=== PATIENT | male | born 1930 | race African-American/Black ===

== ENCOUNTER → 2016-10-06 | Outpatient (CLI) | payer MEDICARE ==
[~2016-10-06] MED LIST: ALBU2.5V13 NEB; ATOR20TA65 PO; CARV12.545 PO; ISOS1TAB PO; MULT1TAB7 PO; PRED5DRO7 RIGHTEYE
== END | disposition home or self-care (01) ==
LOC: RAD 09:27
PROVIDERS: ATTEND Internal Medicine
DX: J44.9 Chronic obstructive pulmonary disease, unspecified (principal); J90 Pleural effusion, not elsewhere classified; I51.7 Cardiomegaly; Z95.810 Presence of automatic (implantable) cardiac defibrillator
CPT/HCPCS: 71010

== ENCOUNTER → 2016-10-07 | Outpatient (CLI) | payer MEDICARE ==
[2016-10-07 09:39] LABS: BASOPHILS % 0.8 % (0.0-2.0); EOSINOPHILS % 1.8 % (0.0-5.0); HEMATOCRIT. 29.3 % (42.0-52.0); HEMOGLOBIN. 9.4 g/dL (14.0-18.0); LYMPHOCYTES % 11.1 % (20.0-50.0); MEAN CORPUSCULAR HEMOGLOBIN 26.8 pg (28.0-32.0); MEAN CORPUSCULAR HGB CONC 32.1 g/dL (31.0-37.0); MEAN CORPUSCULAR VOLUME 83.5 fL (80.0-94.0); MEAN PLATELET VOLUME 6.4 fl (7.4-10.4); MONOCYTES % 10.3 % (2.0-8.0); PLATELET 84 x1000/uL (130-400); WHITE BLOOD COUNT 3.5 x1000/uL (4.5-11.0)
[2016-10-07 10:00] LABS: ALANINE AMINOTRANSFERASE 24 IU/L (13-61); ALBUMIN 3.2 g/dL (3.4-5.0); ANION GAP 12; CALCIUM 9.2 mg/dL (8.5-10.1); CARBON DIOXIDE 28 mEq/L (21-32); CHLORIDE 113 mEq/L (98-107); INDEX HEMOLYSI 1 (1-3); INDEX ICTERIC 1 (1-4); INDEX LIPEMIC 1 (1-3); UREA NITROGEN BLOOD 37 mg/dL (7-21); eGFR 38 mL/min (>60)
[2016-10-07 10:30] LABS: CLARITY URINE CLEAR (CLEAR); COLOR URINE YELLOW (YELLOW); GLUCOSE URINE NEGATIVE (NEGATIVE); KETONES URINE NEGATIVE (NEGATIVE); LEUKOCYTE ESTERASE URINE NEGATIVE (NEGATIVE); NITRITE URINE NEGATIVE (NEGATIVE); OCCULT BLOOD URINE NEGATIVE (NEGATIVE); PH URINE 7.5 (4.5-8.0); PROTEIN URINE NEGATIVE (NEGATIVE); SPECIFIC GRAVITY URINE 1.011 (1.005-1.030); UROBILINOGEN URINE 0.2 E.U./dL (0.2-1.0)
== END | disposition home or self-care (01) ==
LOC: LAB 09:10
PROVIDERS: ATTEND Internal Medicine
DX: H43.391 Other vitreous opacities, right eye (principal)
CPT/HCPCS: 36415; 80053; 81003; 85025

== ENCOUNTER → 2016-10-09 | Outpatient (CLI) | payer MEDICARE | END | disposition home or self-care (01) | LOC: CARD 11:58 | PROVIDERS: ATTEND Internal Medicine | DX: Z01.818 Encounter for other preprocedural examination (principal); H43.391 Other vitreous opacities, right eye | CPT/HCPCS: 93005 ==

== ENCOUNTER 2018-02-15 18:06 | Inpatient (IN) | payer MEDICARE, OTHER ==
[~2018-02-15] VITALS: Ht 180.3 cm; Wt 58.5 kg
[2018-02-15 19:00] VITALS: BP 121/52
[2018-02-15 20:00] VITALS: BP 120/53
[2018-02-15] MEDS ORDERED: ENOXAPARIN 40MG/0.4ML SYR SUBCUT SCH (20:00)
[2018-02-15] MEDS ORDERED: ONDANSETRON HCL 4MG/2ML INJ IV PRN (20:00)
[2018-02-15] MEDS ORDERED: ACETAMINOPHEN 325MG TABLET PO PRN (20:00)
[2018-02-15] MEDS ORDERED: CLONIDINE 0.1MG TABLET PO PRN (20:00)
[2018-02-15] MEDS ORDERED: MAGNESIUM/ALUMINUM HYDROXIDE/SIMETHICONE 30ML UDC PO PRN (20:00)
[2018-02-15] MEDS ORDERED: DIPHENHYDRAMINE 50MG/ML VIAL IV PRN (20:00)
[2018-02-15] MEDS ORDERED: IPRATROPIUM/ALBUTEROL 0.5-3(2.5)MG/3ML NEB HHN SCH (20:00)
[2018-02-15] MEDS ORDERED: ONDANSETRON 4MG ODT PO PRN (21:15)
[2018-02-15 21:43] LABS: BASOPHILS % 0.7 % (0.0-2.0); EOSINOPHILS % 0.8 % (0.0-5.0); HEMATOCRIT. 25.1 % (42.0-52.0); HEMOGLOBIN. 8.2 g/dL (14.0-18.0); LYMPHOCYTES % 8.7 % (20.0-50.0); MEAN CORPUSCULAR HEMOGLOBIN 26.9 pg (28.0-32.0); MEAN CORPUSCULAR VOLUME 81.8 fL (80.0-94.0); MEAN PLATELET VOLUME 6.2 fl (7.4-10.4); MONOCYTES % 12.7 % (2.0-8.0); NEUTROPHILS % 77.1 % (40.0-76.0); PLATELET 87 x1000/uL (130-400); RED BLOOD CELL COUNT 3.06 mill/uL (4.7-6.1); RED CELL DISTRIBUTION WIDTH 23.6 % (11.6-14.6)
[2018-02-15 21:53] LABS: CHLORIDE 110 mEq/L (98-107)
[2018-02-15] MEDS: FAMOTIDINE 20MG TABLET PO SCH (22:01)
[2018-02-15] MEDS: ATORVASTATIN CALCIUM 20MG TABLET PO SCH (22:01)
[2018-02-15] MEDS: CARVEDILOL 12.5MG TABLET PO SCH (22:02)
[2018-02-15] MEDS: FUROSEMIDE 40MG/4ML VIAL IVP SCH (22:02)
[2018-02-15] MEDS: SODIUM CHLORIDE 0.9% INJ 3ML FLUSH IVF SCH (22:02)
[2018-02-15] MEDS ORDERED: METHYLPREDNISOLONE SOD SUCC 40 MG/ML VIAL IV NR (22:15)
[2018-02-15 22:40] LABS: PLATELET ESTIMATE DECREASED
[2018-02-15] MEDS: ISOSORB DINIT/HYDRALAZINE HCL 20/37.5MG TABLET PO SCH (22:56)
[2018-02-15] MEDS ORDERED: FURO-151 PO (23:39)
[2018-02-15] MEDS: BUDESONIDE 0.5MG/2ML NEB HHN SCH (23:57)
[2018-02-16] VITALS: BP 115/51
[2018-02-16 04:00] VITALS: BP 114/54
[2018-02-16] MEDS: SODIUM CHLORIDE 0.9% INJ 3ML FLUSH IVF SCH ×3 (06:21→21:13)
[2018-02-16 08:00] VITALS: BP 117/56
[2018-02-16] MEDS: BUDESONIDE 0.5MG/2ML NEB HHN SCH ×2 (08:38→21:17)
[2018-02-16] MEDS: IPRATROPIUM/ALBUTEROL 0.5-3(2.5)MG/3ML NEB INH PRN ×2 (08:38→21:17)
[2018-02-16] MEDS: ISOSORB DINIT/HYDRALAZINE HCL 20/37.5MG TABLET PO SCH ×2 (09:20→21:13)
[2018-02-16] MEDS: FUROSEMIDE 40MG/4ML VIAL IVP SCH (09:20)
[2018-02-16] MEDS: COLCHICINE 0.6MG TABLET PO SCH (09:20)
[2018-02-16] MEDS: CARVEDILOL 12.5MG TABLET PO SCH ×2 (09:20→21:13)
[2018-02-16] MEDS: FINASTERIDE 5MG TABLET PO SCH (09:21)
[2018-02-16] MEDS: PREDNISOLONE ACETATE 1% OPHTH DROPS 1ML RIGHTEYE SCH ×2 (09:28→17:32)
[2018-02-16 12:41] VITALS: BP 112/45
[2018-02-16 14:05] LABS: T4 FREE 1.21 ng/dL (0.76-1.46)
[2018-02-16 15:31] LABS: CREATINE KINASE 65 IU/L (39-308)
[2018-02-16 15:32] LABS: CREATINE KINASE MB FRACTION < 1.0 ng/mL (0.5-3.6)
[2018-02-16 16:53] VITALS: BP 113/65
[2018-02-16 20:00] VITALS: BP 103/51
[2018-02-16] MEDS: ATORVASTATIN CALCIUM 20MG TABLET PO SCH (21:12)
[2018-02-16] MEDS: FAMOTIDINE 20MG TABLET PO SCH (21:13)
[2018-02-17] VITALS: BP_SYST 113; BP_SYST 132; BP_DIAS 50; BP_DIAS 53
[2018-02-17 00:49] LABS: CREATINE KINASE 51 IU/L (39-308); CREATINE KINASE MB FRACTION < 1.0 ng/mL (0.5-3.6)
[2018-02-17 04:00] VITALS: BP 121/53
[2018-02-17] MEDS: SODIUM CHLORIDE 0.9% INJ 3ML FLUSH IVF SCH ×3 (05:35→21:14)
[2018-02-17 08:00] VITALS: BP 130/64
[2018-02-17] MEDS: BUDESONIDE 0.5MG/2ML NEB HHN SCH ×2 (08:58→19:39)
[2018-02-17] MEDS: IPRATROPIUM/ALBUTEROL 0.5-3(2.5)MG/3ML NEB INH PRN (08:58)
[2018-02-17 09:24] LABS: CHLORIDE 111 mEq/L (98-107)
[2018-02-17 09:34] LABS: CREATINE KINASE 45 IU/L (39-308)
[2018-02-17 09:37] LABS: CREATINE KINASE MB FRACTION < 1.0 ng/mL (0.5-3.6)
[2018-02-17] MEDS: PREDNISOLONE ACETATE 1% OPHTH DROPS 1ML RIGHTEYE SCH ×2 (10:03→17:48)
[2018-02-17] MEDS: COLCHICINE 0.6MG TABLET PO SCH (10:04)
[2018-02-17] MEDS: ISOSORB DINIT/HYDRALAZINE HCL 20/37.5MG TABLET PO SCH ×2 (10:05→21:13)
[2018-02-17] MEDS: FINASTERIDE 5MG TABLET PO SCH (10:05)
[2018-02-17] MEDS: FUROSEMIDE 40MG/4ML VIAL IVP SCH (10:06)
[2018-02-17] MEDS: CARVEDILOL 12.5MG TABLET PO SCH ×2 (10:08→21:13)
[2018-02-17 12:00] VITALS: BP 117/63
[2018-02-17] MEDS ORDERED: SODIUM BICARBONATE 4% (2.4MEQ) 5ML VIAL IV ONE (13:45)
[2018-02-17] MEDS ORDERED: LIDOCAINE HCL 1% 10 MG/ML 10ML VIAL ONE (13:45)
[2018-02-17 17:24] VITALS: BP 115/53
[2018-02-17 20:00] VITALS: BP 128/58
[2018-02-17] MEDS: ATORVASTATIN CALCIUM 20MG TABLET PO SCH (21:12)
[2018-02-17] MEDS: FAMOTIDINE 20MG TABLET PO SCH (21:13)
[2018-02-18] VITALS: BP 165/60
[2018-02-18 04:00] VITALS: BP 115/50
[2018-02-18] MEDS: SODIUM CHLORIDE 0.9% INJ 3ML FLUSH IVF SCH ×3 (06:17→23:35)
[2018-02-18] MEDS: BUDESONIDE 0.5MG/2ML NEB HHN SCH ×2 (07:57→20:35)
[2018-02-18] MEDS: IPRATROPIUM/ALBUTEROL 0.5-3(2.5)MG/3ML NEB INH PRN (07:57)
[2018-02-18 08:00] VITALS: BP 123/57
[2018-02-18] MEDS: COLCHICINE 0.6MG TABLET PO SCH ×2 (09:11→16:07)
[2018-02-18] MEDS: CARVEDILOL 12.5MG TABLET PO SCH ×2 (09:11→20:10)
[2018-02-18] MEDS: FINASTERIDE 5MG TABLET PO SCH (09:11)
[2018-02-18] MEDS: FUROSEMIDE 40MG/4ML VIAL IVP SCH (09:11)
[2018-02-18] MEDS: ISOSORB DINIT/HYDRALAZINE HCL 20/37.5MG TABLET PO SCH ×2 (09:11→20:11)
[2018-02-18] MEDS: PREDNISOLONE ACETATE 1% OPHTH DROPS 1ML RIGHTEYE SCH ×2 (09:41→16:07)
[2018-02-18 12:00] VITALS: BP 121/56
[2018-02-18] MEDS ORDERED: METHYLPREDNISOLONE SOD SUCC 40 MG/ML VIAL IV NR (14:50)
[2018-02-18 16:00] VITALS: BP 118/69
[2018-02-18 19:49] VITALS: BP 122/57
[2018-02-18] MEDS: LIDOCAINE 5% PATCH TOP SCH (20:10)
[2018-02-18] MEDS: FAMOTIDINE 20MG TABLET PO SCH (20:10)
[2018-02-18] MEDS: ATORVASTATIN CALCIUM 20MG TABLET PO SCH (20:11)
[2018-02-19] VITALS (8 sets, daily range): BP systolic 110–166; BP diastolic 55–69
[2018-02-19] MEDS: SODIUM CHLORIDE 0.9% INJ 3ML FLUSH IVF SCH ×2 (06:14→13:07)
[2018-02-19] MEDS: CARVEDILOL 12.5MG TABLET PO SCH ×2 (08:54→20:17)
[2018-02-19] MEDS: PREDNISOLONE ACETATE 1% OPHTH DROPS 1ML RIGHTEYE SCH ×2 (08:56→16:59)
[2018-02-19] MEDS: OXYCODONE HCL 5MG TABLET PO SCH ×3 (08:56→16:59)
[2018-02-19] MEDS: ISOSORB DINIT/HYDRALAZINE HCL 20/37.5MG TABLET PO SCH ×2 (08:56→20:17)
[2018-02-19] MEDS: COLCHICINE 0.6MG TABLET PO SCH ×2 (08:56→16:59)
[2018-02-19] MEDS: FINASTERIDE 5MG TABLET PO SCH (08:56)
[2018-02-19] MEDS: LIDOCAINE 5% PATCH TOP SCH (08:57)
[2018-02-19] MEDS ORDERED: FUROSEMIDE 40MG TABLET PO SCH (09:00)
[2018-02-19] MEDS: ATORVASTATIN CALCIUM 20MG TABLET PO SCH (20:16)
[2018-02-19] MEDS: FAMOTIDINE 20MG TABLET PO SCH (20:17)
== END 2018-02-19 21:16 | DRG 291 ==
LOC: 8WST 18:06
PROVIDERS: ADMIT Internal Medicine; ATTEND Internal Medicine
PROC: 0S9C3ZZ Drainage of Right Knee Joint, Percutaneous Approach (ICD-10-PCS; principal; 2018-02-17)
DX: I13.0 Hypertensive heart and chronic kidney disease with heart failure and stage 1 through stage 4 chronic kidney disease, or unspecified chronic kidney disease (principal); I50.23 Acute on chronic systolic (congestive) heart failure; E46 Unspecified protein-calorie malnutrition; D61.818 Other pancytopenia; E87.0 Hyperosmolality and hypernatremia; N17.9 Acute kidney failure, unspecified; Z68.1 Body mass index [BMI] 19.9 or less, adult; I42.0 Dilated cardiomyopathy; N18.9 Chronic kidney disease, unspecified; J44.9 Chronic obstructive pulmonary disease, unspecified; K57.90 Diverticulosis of intestine, part unspecified, without perforation or abscess without bleeding; M25.461 Effusion, right knee; M19.90 Unspecified osteoarthritis, unspecified site; E78.00 Pure hypercholesterolemia, unspecified; I27.20 Pulmonary hypertension, unspecified; I07.1 Rheumatic tricuspid insufficiency; M10.9 Gout, unspecified; I25.10 Atherosclerotic heart disease of native coronary artery without angina pectoris; I44.7 Left bundle-branch block, unspecified; Z82.49 Family history of ischemic heart disease and other diseases of the circulatory system; Z95.810 Presence of automatic (implantable) cardiac defibrillator
CPT/HCPCS: 20611; 36415; 71045; 73560; 80048; 80053; 80061; 82550; 82553; 83036; 83880; 84439; 84443; 84484; 84550; 85025; 85379; 89050; 89060; 93005; 93306; 93970; 94640; 97162; 97530; C1893; J1940; J2920; J3490; J7620; J7626

== ENCOUNTER 2018-02-19 21:18 | Inpatient (IN) | payer MEDICARE, OTHER ==
[~2018-02-19] VITALS: Ht 180.3 cm; Wt 58.5 kg
[~2018-02-19 21:18] MED LIST changes: +FURO-151 PO
[2018-02-19 21:30] VITALS: BP 136/58
[2018-02-19 21:40] VITALS: BP 136/58
[2018-02-19] MEDS ORDERED: ACETAMINOPHEN 325MG TABLET PO PRN (22:45)
[2018-02-19] MEDS ORDERED: IPRATROPIUM/ALBUTEROL 0.5-3(2.5)MG/3ML NEB HHN PRN (22:45)
[2018-02-19] MEDS ORDERED: CLONIDINE 0.1MG TABLET PO PRN (22:45)
[2018-02-19] MEDS ORDERED: ONDANSETRON 4MG ODT PO PRN (22:45)
[2018-02-19] MEDS ORDERED: MAGNESIUM HYDROXIDE 400MG/5ML 30ML UDC PO PRN (22:45)
[2018-02-19] MEDS ORDERED: DIPHENHYDRAMINE 25MG CAPSULE PO PRN (22:45)
[2018-02-19] MEDS ORDERED: MAGNESIUM/ALUMINUM HYDROXIDE/SIMETHICONE 30ML UDC PO PRN (22:45)
[2018-02-20 08:00] VITALS: BP 144/66
[2018-02-20 08:11] LABS: BASOPHILS % 0.8 % (0.0-2.0); EOSINOPHILS % 2.3 % (0.0-5.0); HEMATOCRIT. 25.3 % (42.0-52.0); HEMOGLOBIN. 8.7 g/dL (14.0-18.0); LYMPHOCYTES % 13.4 % (20.0-50.0); MEAN CORPUSCULAR VOLUME 81.5 fL (80.0-94.0); MEAN PLATELET VOLUME 6.2 fl (7.4-10.4); MONOCYTES % 11.5 % (2.0-8.0); PLATELET 135 x1000/uL (130-400); RED CELL DISTRIBUTION WIDTH 22.6 % (11.6-14.6)
[2018-02-20 08:49] LABS: CHLORIDE 111 mEq/L (98-107)
[2018-02-20] MEDS: POLYETHYLENE GLYCOL 3350 (17GM) 1 DOSE PACK PO SCH (08:51)
[2018-02-20] MEDS: PREDNISOLONE ACETATE 1% OPHTH DROPS 1ML RIGHTEYE SCH ×2 (08:51→17:09)
[2018-02-20] MEDS: FUROSEMIDE 40MG TABLET PO SCH (08:52)
[2018-02-20] MEDS: COLCHICINE 0.6MG TABLET PO SCH ×2 (08:52→17:09)
[2018-02-20] MEDS: ISOSORB DINIT/HYDRALAZINE HCL 20/37.5MG TABLET PO SCH ×2 (08:53→20:54)
[2018-02-20] MEDS: CARVEDILOL 12.5MG TABLET PO SCH ×2 (08:53→20:54)
[2018-02-20] MEDS: FINASTERIDE 5MG TABLET PO SCH (08:53)
[2018-02-20] MEDS: DOCUSATE SODIUM 100MG CAPSULE PO SCH ×2 (08:54→17:09)
[2018-02-20] MEDS: OXYCODONE HCL 5MG TABLET PO SCH ×3 (08:55→16:55)
[2018-02-20] MEDS: LIDOCAINE 5% PATCH TOP SCH (08:57)
[2018-02-20 12:20] VITALS: BP 110/49
[2018-02-20 16:50] VITALS: BP 129/58
[2018-02-20 20:00] VITALS: BP 127/56
[2018-02-20] MEDS: FAMOTIDINE 20MG TABLET PO SCH (20:54)
[2018-02-20] MEDS: ATORVASTATIN CALCIUM 20MG TABLET PO SCH (20:54)
[2018-02-20 22:24] LABS: PLATELET ESTIMATE NORMAL
[2018-02-21] MEDS: FUROSEMIDE 40MG TABLET PO SCH (08:51)
[2018-02-21] MEDS: DOCUSATE SODIUM 100MG CAPSULE PO SCH ×2 (08:51→16:38)
[2018-02-21] MEDS: FINASTERIDE 5MG TABLET PO SCH (08:52)
[2018-02-21] MEDS: ISOSORB DINIT/HYDRALAZINE HCL 20/37.5MG TABLET PO SCH ×2 (08:52→21:21)
[2018-02-21] MEDS: COLCHICINE 0.6MG TABLET PO SCH (08:52)
[2018-02-21] MEDS: POLYETHYLENE GLYCOL 3350 (17GM) 1 DOSE PACK PO SCH (08:53)
[2018-02-21] MEDS: PREDNISOLONE ACETATE 1% OPHTH DROPS 1ML RIGHTEYE SCH ×2 (08:53→16:39)
[2018-02-21] MEDS: CARVEDILOL 12.5MG TABLET PO SCH ×2 (08:53→21:21)
[2018-02-21 08:54] VITALS: BP 147/69
[2018-02-21] MEDS: OXYCODONE HCL 5MG TABLET PO SCH ×3 (08:55→16:40)
[2018-02-21] MEDS: LIDOCAINE 5% PATCH TOP SCH (08:56)
[2018-02-21 12:40] VITALS: BP 114/52
[2018-02-21 16:30] VITALS: BP 119/60
[2018-02-21 20:00] VITALS: BP 139/58
[2018-02-21] MEDS: ATORVASTATIN CALCIUM 20MG TABLET PO SCH (21:21)
[2018-02-21] MEDS: FAMOTIDINE 20MG TABLET PO SCH (21:21)
[2018-02-22 07:10] LABS: PROSTRATE SPECIFIC AG TOTAL 0.02 ng/mL (0.0-4.0)
[2018-02-22 07:16] LABS: PHOSPHORUS 2.8 mg/dL (2.5-4.9)
[2018-02-22 07:40] LABS: BASOPHILS % 0.7 % (0.0-2.0); EOSINOPHILS % 2.7 % (0.0-5.0); HEMATOCRIT. 25.8 % (42.0-52.0); HEMOGLOBIN. 8.6 g/dL (14.0-18.0); LYMPHOCYTES % 14.9 % (20.0-50.0); MEAN CORPUSCULAR HEMOGLOBIN 27.4 pg (28.0-32.0); MEAN CORPUSCULAR VOLUME 82.2 fL (80.0-94.0); MEAN PLATELET VOLUME 6.2 fl (7.4-10.4); MONOCYTES % 10.1 % (2.0-8.0); NEUTROPHILS % 71.6 % (40.0-76.0); PLATELET 124 x1000/uL (130-400); RED BLOOD CELL COUNT 3.14 mill/uL (4.7-6.1); RED CELL DISTRIBUTION WIDTH 22.4 % (11.6-14.6)
[2018-02-22 08:00] VITALS: BP 148/65
[2018-02-22 08:04] LABS: FOLIC ACID (FOLATE) SERUM 18.2 ng/mL (>5.38)
[2018-02-22] MEDS: FUROSEMIDE 40MG TABLET PO SCH (08:11)
[2018-02-22] MEDS: CARVEDILOL 12.5MG TABLET PO SCH ×2 (08:11→20:45)
[2018-02-22] MEDS: DOCUSATE SODIUM 100MG CAPSULE PO SCH ×2 (08:12→17:50)
[2018-02-22] MEDS: ISOSORB DINIT/HYDRALAZINE HCL 20/37.5MG TABLET PO SCH ×2 (08:12→20:45)
[2018-02-22] MEDS: COLCHICINE 0.6MG TABLET PO SCH (08:12)
[2018-02-22] MEDS: OXYCODONE HCL 5MG TABLET PO SCH ×3 (08:12→17:00)
[2018-02-22] MEDS: FINASTERIDE 5MG TABLET PO SCH (08:12)
[2018-02-22] MEDS: LIDOCAINE 5% PATCH TOP SCH (08:13)
[2018-02-22] MEDS: PREDNISOLONE ACETATE 1% OPHTH DROPS 1ML RIGHTEYE SCH ×2 (08:13→17:51)
[2018-02-22] MEDS: POLYETHYLENE GLYCOL 3350 (17GM) 1 DOSE PACK PO SCH (08:15)
[2018-02-22] MEDS: LACTULOSE 20G/30ML UDC PO SCH ×3 (14:30→20:45)
[2018-02-22] MEDS ORDERED: BISACODYL 10MG SUPP PR PRN (14:30)
[2018-02-22 20:00] VITALS: BP 129/59
[2018-02-22] MEDS: ATORVASTATIN CALCIUM 20MG TABLET PO SCH (20:45)
[2018-02-22] MEDS: FAMOTIDINE 20MG TABLET PO SCH (20:46)
[2018-02-23 08:10] VITALS: BP 141/61
[2018-02-23] MEDS: DOCUSATE SODIUM 100MG CAPSULE PO SCH ×2 (09:00→17:00)
[2018-02-23] MEDS: POLYETHYLENE GLYCOL 3350 (17GM) 1 DOSE PACK PO SCH (09:00)
[2018-02-23] MEDS: ISOSORB DINIT/HYDRALAZINE HCL 20/37.5MG TABLET PO SCH ×2 (09:25→20:53)
[2018-02-23] MEDS: COLCHICINE 0.6MG TABLET PO SCH (09:26)
[2018-02-23] MEDS: FUROSEMIDE 40MG TABLET PO SCH (09:26)
[2018-02-23] MEDS: CARVEDILOL 12.5MG TABLET PO SCH ×2 (09:26→20:53)
[2018-02-23] MEDS: FINASTERIDE 5MG TABLET PO SCH (09:27)
[2018-02-23] MEDS: PREDNISOLONE ACETATE 1% OPHTH DROPS 1ML RIGHTEYE SCH ×2 (09:29→17:35)
[2018-02-23] MEDS: OXYCODONE HCL 5MG TABLET PO SCH ×3 (09:29→17:38)
[2018-02-23] MEDS: LIDOCAINE 5% PATCH TOP SCH (09:30)
[2018-02-23 20:00] VITALS: BP 101/62
[2018-02-23] MEDS: ATORVASTATIN CALCIUM 20MG TABLET PO SCH (20:55)
[2018-02-23] MEDS: FAMOTIDINE 20MG TABLET PO SCH (20:55)
[2018-02-24] MEDS: OXYCODONE HCL 5MG TABLET PO SCH ×3 (06:48→17:22)
[2018-02-24 06:54] LABS: EOSINOPHILS % 2.4 % (0.0-5.0); HEMATOCRIT. 26.4 % (42.0-52.0); HEMOGLOBIN. 8.8 g/dL (14.0-18.0); LYMPHOCYTES % 9.8 % (20.0-50.0); MEAN CORPUSCULAR HEMOGLOBIN 27.4 pg (28.0-32.0); MEAN CORPUSCULAR VOLUME 81.7 fL (80.0-94.0); MEAN PLATELET VOLUME 6.3 fl (7.4-10.4); MONOCYTES % 8.1 % (2.0-8.0); NEUTROPHILS % 78.7 % (40.0-76.0); PLATELET 122 x1000/uL (130-400); RED BLOOD CELL COUNT 3.23 mill/uL (4.7-6.1); RED CELL DISTRIBUTION WIDTH 23.1 % (11.6-14.6)
[2018-02-24 08:05] VITALS: BP 138/68
[2018-02-24] MEDS: PREDNISOLONE ACETATE 1% OPHTH DROPS 1ML RIGHTEYE SCH ×2 (08:53→17:22)
[2018-02-24] MEDS: DOCUSATE SODIUM 100MG CAPSULE PO SCH ×2 (08:54→17:21)
[2018-02-24] MEDS: FINASTERIDE 5MG TABLET PO SCH (08:54)
[2018-02-24] MEDS: ENOXAPARIN 30MG/0.3ML SYR SUBCUT SCH (08:54)
[2018-02-24] MEDS: ISOSORB DINIT/HYDRALAZINE HCL 20/37.5MG TABLET PO SCH ×2 (08:54→20:40)
[2018-02-24] MEDS: FUROSEMIDE 40MG TABLET PO SCH (08:54)
[2018-02-24] MEDS: POLYETHYLENE GLYCOL 3350 (17GM) 1 DOSE PACK PO SCH (08:54)
[2018-02-24] MEDS: COLCHICINE 0.6MG TABLET PO SCH (08:54)
[2018-02-24] MEDS: CARVEDILOL 12.5MG TABLET PO SCH ×2 (08:54→20:40)
[2018-02-24] MEDS: LIDOCAINE 5% PATCH TOP SCH (08:55)
[2018-02-24 20:00] VITALS: BP 142/62
[2018-02-24] MEDS: FAMOTIDINE 20MG TABLET PO SCH (20:40)
[2018-02-24] MEDS: ATORVASTATIN CALCIUM 20MG TABLET PO SCH (20:40)
[2018-02-25 08:00] VITALS: BP 129/59
[2018-02-25] MEDS: PREDNISOLONE ACETATE 1% OPHTH DROPS 1ML RIGHTEYE SCH ×2 (08:42→16:39)
[2018-02-25] MEDS: ISOSORB DINIT/HYDRALAZINE HCL 20/37.5MG TABLET PO SCH ×2 (08:42→22:00)
[2018-02-25] MEDS: DOCUSATE SODIUM 100MG CAPSULE PO SCH ×2 (08:42→16:26)
[2018-02-25] MEDS: CARVEDILOL 12.5MG TABLET PO SCH ×2 (08:42→22:00)
[2018-02-25] MEDS: FINASTERIDE 5MG TABLET PO SCH (08:43)
[2018-02-25] MEDS: POLYETHYLENE GLYCOL 3350 (17GM) 1 DOSE PACK PO SCH (08:43)
[2018-02-25] MEDS: COLCHICINE 0.6MG TABLET PO SCH (08:43)
[2018-02-25] MEDS: FUROSEMIDE 40MG TABLET PO SCH (08:43)
[2018-02-25] MEDS: ENOXAPARIN 30MG/0.3ML SYR SUBCUT SCH (08:43)
[2018-02-25] MEDS: OXYCODONE HCL 5MG TABLET PO SCH ×2 (08:44→16:27)
[2018-02-25] MEDS: LIDOCAINE 5% PATCH TOP SCH (08:44)
[2018-02-25 20:00] VITALS: BP 134/64
[2018-02-25] MEDS: ATORVASTATIN CALCIUM 20MG TABLET PO SCH (22:00)
[2018-02-25] MEDS: FAMOTIDINE 20MG TABLET PO SCH (22:00)
[2018-02-26 06:16] LABS: 25-HYDROXY VITAMIN D3 35 ng/mL (.)
[2018-02-26 07:04] LABS: BASOPHILS % 0.7 % (0.0-2.0); EOSINOPHILS % 1.9 % (0.0-5.0); HEMATOCRIT. 25.2 % (42.0-52.0); HEMOGLOBIN. 8.5 g/dL (14.0-18.0); LYMPHOCYTES % 10.2 % (20.0-50.0); MEAN CORPUSCULAR HEMOGLOBIN 27.7 pg (28.0-32.0); MEAN CORPUSCULAR VOLUME 82.1 fL (80.0-94.0); MEAN PLATELET VOLUME 6.7 fl (7.4-10.4); MONOCYTES % 10.5 % (2.0-8.0); NEUTROPHILS % 76.7 % (40.0-76.0); PLATELET 114 x1000/uL (130-400); RED BLOOD CELL COUNT 3.07 mill/uL (4.7-6.1); RED CELL DISTRIBUTION WIDTH 23.3 % (11.6-14.6)
[2018-02-26 08:04] VITALS: BP 137/68
[2018-02-26] MEDS: POLYETHYLENE GLYCOL 3350 (17GM) 1 DOSE PACK PO SCH (09:30)
[2018-02-26] MEDS: CARVEDILOL 12.5MG TABLET PO SCH ×2 (09:31→20:58)
[2018-02-26] MEDS: OXYCODONE HCL 5MG TABLET PO SCH ×3 (09:32→18:12)
[2018-02-26] MEDS: FINASTERIDE 5MG TABLET PO SCH (09:33)
[2018-02-26] MEDS: ISOSORB DINIT/HYDRALAZINE HCL 20/37.5MG TABLET PO SCH ×2 (09:33→20:57)
[2018-02-26] MEDS: PREDNISOLONE ACETATE 1% OPHTH DROPS 1ML RIGHTEYE SCH ×2 (09:34→18:12)
[2018-02-26] MEDS: FUROSEMIDE 40MG TABLET PO SCH (09:34)
[2018-02-26] MEDS: COLCHICINE 0.6MG TABLET PO SCH (09:34)
[2018-02-26] MEDS: DOCUSATE SODIUM 100MG CAPSULE PO SCH ×2 (09:34→17:00)
[2018-02-26] MEDS: ENOXAPARIN 30MG/0.3ML SYR SUBCUT SCH (09:35)
[2018-02-26] MEDS: LIDOCAINE 5% PATCH TOP SCH (09:36)
[2018-02-26 20:00] VITALS: BP 136/75
[2018-02-26] MEDS: ATORVASTATIN CALCIUM 20MG TABLET PO SCH (20:57)
[2018-02-26] MEDS: FAMOTIDINE 20MG TABLET PO SCH (20:58)
[2018-02-27 07:58] VITALS: BP 136/68
[2018-02-27] MEDS: PREDNISOLONE ACETATE 1% OPHTH DROPS 1ML RIGHTEYE SCH ×2 (08:23→16:36)
[2018-02-27] MEDS: POLYETHYLENE GLYCOL 3350 (17GM) 1 DOSE PACK PO SCH (08:23)
[2018-02-27] MEDS: FUROSEMIDE 40MG TABLET PO SCH (08:24)
[2018-02-27] MEDS: DOCUSATE SODIUM 100MG CAPSULE PO SCH ×2 (08:24→16:36)
[2018-02-27] MEDS: ISOSORB DINIT/HYDRALAZINE HCL 20/37.5MG TABLET PO SCH ×2 (08:24→20:22)
[2018-02-27] MEDS: ENOXAPARIN 30MG/0.3ML SYR SUBCUT SCH (08:24)
[2018-02-27] MEDS: CARVEDILOL 12.5MG TABLET PO SCH ×2 (08:25→20:22)
[2018-02-27] MEDS: FINASTERIDE 5MG TABLET PO SCH (08:25)
[2018-02-27] MEDS: COLCHICINE 0.6MG TABLET PO SCH (08:25)
[2018-02-27] MEDS: OXYCODONE HCL 5MG TABLET PO SCH ×3 (08:27→16:37)
[2018-02-27] MEDS: LIDOCAINE 5% PATCH TOP SCH (08:28)
[2018-02-27] MEDS ORDERED: DEXT 5% WATER 500 ML IV ONE (11:30)
[2018-02-27 12:10] VITALS: BP 108/48
[2018-02-27 16:28] VITALS: BP 140/64
[2018-02-27 20:00] VITALS: BP 126/53
[2018-02-27] MEDS: FAMOTIDINE 20MG TABLET PO SCH (20:22)
[2018-02-27] MEDS: ATORVASTATIN CALCIUM 20MG TABLET PO SCH (20:22)
[2018-02-28 07:10] LABS: HEMATOCRIT. 25.9 % (42.0-52.0); HEMOGLOBIN. 8.6 g/dL (14.0-18.0); LYMPHOCYTES % 10.3 % (20.0-50.0); MEAN CORPUSCULAR HEMOGLOBIN 27.6 pg (28.0-32.0); MEAN CORPUSCULAR VOLUME 83.1 fL (80.0-94.0); MEAN PLATELET VOLUME 6.5 fl (7.4-10.4); MONOCYTES % 10.9 % (2.0-8.0); NEUTROPHILS % 75.8 % (40.0-76.0); PLATELET 106 x1000/uL (130-400); RED BLOOD CELL COUNT 3.12 mill/uL (4.7-6.1); RED CELL DISTRIBUTION WIDTH 23.3 % (11.6-14.6)
[2018-02-28 07:56] VITALS: BP 138/69
[2018-02-28] MEDS: COLCHICINE 0.6MG TABLET PO SCH (08:30)
[2018-02-28] MEDS: ENOXAPARIN 30MG/0.3ML SYR SUBCUT SCH (08:30)
[2018-02-28] MEDS: OXYCODONE HCL 5MG TABLET PO SCH ×3 (08:30→16:35)
[2018-02-28] MEDS: POLYETHYLENE GLYCOL 3350 (17GM) 1 DOSE PACK PO SCH (08:31)
[2018-02-28] MEDS: PREDNISOLONE ACETATE 1% OPHTH DROPS 1ML RIGHTEYE SCH ×2 (08:31→17:04)
[2018-02-28] MEDS: ISOSORB DINIT/HYDRALAZINE HCL 20/37.5MG TABLET PO SCH ×2 (08:31→22:30)
[2018-02-28] MEDS: CARVEDILOL 12.5MG TABLET PO SCH (08:31)
[2018-02-28] MEDS: DOCUSATE SODIUM 100MG CAPSULE PO SCH ×2 (08:31→16:34)
[2018-02-28] MEDS: FINASTERIDE 5MG TABLET PO SCH (08:32)
[2018-02-28] MEDS: LIDOCAINE 5% PATCH TOP SCH (08:33)
[2018-02-28 10:24] LABS: PLATELET ESTIMATE SLIGHTLY DECREASED
[2018-02-28 20:00] VITALS: BP 148/76
[2018-02-28] MEDS: ATORVASTATIN CALCIUM 20MG TABLET PO SCH (22:30)
[2018-02-28] MEDS: FAMOTIDINE 20MG TABLET PO SCH (22:31)
[2018-03-01] MEDS: CARVEDILOL 12.5MG TABLET PO SCH ×3 (00:49→22:31)
[2018-03-01 08:00] VITALS: BP 137/70
[2018-03-01] MEDS: FINASTERIDE 5MG TABLET PO SCH (09:00)
[2018-03-01] MEDS: ENOXAPARIN 30MG/0.3ML SYR SUBCUT SCH (09:08)
[2018-03-01] MEDS: COLCHICINE 0.6MG TABLET PO SCH (09:08)
[2018-03-01] MEDS: OXYCODONE HCL 5MG TABLET PO SCH ×2 (09:11→12:50)
[2018-03-01] MEDS: DOCUSATE SODIUM 100MG CAPSULE PO SCH ×2 (09:11→17:00)
[2018-03-01] MEDS: POLYETHYLENE GLYCOL 3350 (17GM) 1 DOSE PACK PO SCH (09:11)
[2018-03-01] MEDS: LIDOCAINE 5% PATCH TOP SCH (09:12)
[2018-03-01] MEDS: PREDNISOLONE ACETATE 1% OPHTH DROPS 1ML RIGHTEYE SCH ×2 (09:16→17:20)
[2018-03-01] MEDS: ISOSORB DINIT/HYDRALAZINE HCL 20/37.5MG TABLET PO SCH ×2 (09:16→21:12)
[2018-03-01] MEDS ORDERED: OXYCODONE HCL 5MG TABLET PO PRN (13:15)
[2018-03-01 20:00] VITALS: BP 145/79
[2018-03-01] MEDS: FAMOTIDINE 20MG TABLET PO SCH (21:12)
[2018-03-01] MEDS: ATORVASTATIN CALCIUM 20MG TABLET PO SCH (21:12)
[2018-03-02 06:57] LABS: HEMATOCRIT. 25.6 % (42.0-52.0); HEMOGLOBIN. 8.4 g/dL (14.0-18.0); MEAN CORPUSCULAR HEMOGLOBIN 27.8 pg (28.0-32.0); MEAN CORPUSCULAR VOLUME 84.7 fL (80.0-94.0); MEAN PLATELET VOLUME 6.7 fl (7.4-10.4); PLATELET 94 x1000/uL (130-400); RED BLOOD CELL COUNT 3.02 mill/uL (4.7-6.1)
[2018-03-02 08:00] VITALS: BP 135/71
[2018-03-02] MEDS: POLYETHYLENE GLYCOL 3350 (17GM) 1 DOSE PACK PO SCH (08:47)
[2018-03-02] MEDS: DOCUSATE SODIUM 100MG CAPSULE PO SCH ×2 (08:47→16:05)
[2018-03-02] MEDS: PREDNISOLONE ACETATE 1% OPHTH DROPS 1ML RIGHTEYE SCH ×2 (08:48→17:21)
[2018-03-02] MEDS: ISOSORB DINIT/HYDRALAZINE HCL 20/37.5MG TABLET PO SCH ×2 (08:49→21:36)
[2018-03-02] MEDS: COLCHICINE 0.6MG TABLET PO SCH (08:49)
[2018-03-02] MEDS: CARVEDILOL 12.5MG TABLET PO SCH ×2 (08:57→21:35)
[2018-03-02] MEDS: LIDOCAINE 5% PATCH TOP SCH ×2 (08:58→14:15)
[2018-03-02] MEDS: FINASTERIDE 5MG TABLET PO SCH (08:58)
[2018-03-02] MEDS: ENOXAPARIN 30MG/0.3ML SYR SUBCUT SCH (09:00)
[2018-03-02 11:13] LABS: PLATELET ESTIMATE DECREASED
[2018-03-02] MEDS: BUDESONIDE 0.5MG/2ML NEB HHN SCH ×2 (16:48→21:02)
[2018-03-02 20:00] VITALS: BP 131/62
[2018-03-02] MEDS: ATORVASTATIN CALCIUM 20MG TABLET PO SCH (21:35)
[2018-03-02] MEDS: FAMOTIDINE 20MG TABLET PO SCH (21:36)
[2018-03-03 07:49] VITALS: BP 135/66
[2018-03-03] MEDS: COLCHICINE 0.6MG TABLET PO SCH (08:57)
[2018-03-03] MEDS: FUROSEMIDE 40MG TABLET PO SCH (08:57)
[2018-03-03] MEDS: FINASTERIDE 5MG TABLET PO SCH (08:57)
[2018-03-03] MEDS: ISOSORB DINIT/HYDRALAZINE HCL 20/37.5MG TABLET PO SCH ×2 (08:58→21:02)
[2018-03-03] MEDS: CARVEDILOL 12.5MG TABLET PO SCH ×2 (08:58→21:02)
[2018-03-03] MEDS: POLYETHYLENE GLYCOL 3350 (17GM) 1 DOSE PACK PO SCH (08:58)
[2018-03-03] MEDS: DOCUSATE SODIUM 100MG CAPSULE PO SCH ×2 (08:58→18:28)
[2018-03-03] MEDS: PREDNISOLONE ACETATE 1% OPHTH DROPS 1ML RIGHTEYE SCH ×2 (08:59→18:28)
[2018-03-03] MEDS: ENOXAPARIN 30MG/0.3ML SYR SUBCUT SCH (08:59)
[2018-03-03] MEDS: LIDOCAINE 5% PATCH TOP SCH ×2 (09:00→09:23)
[2018-03-03] MEDS: BUDESONIDE 0.5MG/2ML NEB HHN SCH ×2 (11:16→21:55)
[2018-03-03] MEDS: IPRATROPIUM/ALBUTEROL 0.5-3(2.5)MG/3ML NEB HHN PRN (11:16)
[2018-03-03 20:00] VITALS: BP 144/75
[2018-03-03] MEDS: ATORVASTATIN CALCIUM 20MG TABLET PO SCH (21:01)
[2018-03-03] MEDS: FAMOTIDINE 20MG TABLET PO SCH (21:01)
[2018-03-03] MEDS: ALLOPURINOL 100 MG TABLET PO SCH (22:35)
[2018-03-03] MEDS: METHYLPREDNISOLONE SOD SUCC 40 MG/ML VIAL IV SCH (22:36)
[2018-03-04] MEDS: BUDESONIDE 0.5MG/2ML NEB HHN SCH ×2 (07:31→22:22)
[2018-03-04] MEDS: IPRATROPIUM/ALBUTEROL 0.5-3(2.5)MG/3ML NEB HHN PRN (07:31)
[2018-03-04 08:17] VITALS: BP 149/83
[2018-03-04 08:19] LABS: HEMATOCRIT. 27.8 % (42.0-52.0); HEMOGLOBIN. 9.1 g/dL (14.0-18.0); MEAN CORPUSCULAR HEMOGLOBIN 27.2 pg (28.0-32.0); MEAN CORPUSCULAR VOLUME 83.3 fL (80.0-94.0); MEAN PLATELET VOLUME 8.2 fl (7.4-10.4); PLATELET 92 x1000/uL (130-400); RED BLOOD CELL COUNT 3.34 mill/uL (4.7-6.1); RED CELL DISTRIBUTION WIDTH 23.4 % (11.6-14.6)
[2018-03-04 08:55] LABS: PHOSPHORUS 3.7 mg/dL (2.5-4.9)
[2018-03-04] MEDS: POLYETHYLENE GLYCOL 3350 (17GM) 1 DOSE PACK PO SCH ×2 (09:00→09:24)
[2018-03-04] MEDS: ENOXAPARIN 30MG/0.3ML SYR SUBCUT SCH (09:00)
[2018-03-04 09:22] LABS: PLATELET ESTIMATE DECREASED
[2018-03-04] MEDS: METHYLPREDNISOLONE SOD SUCC 40 MG/ML VIAL IV SCH ×2 (09:23→16:49)
[2018-03-04] MEDS: PREDNISOLONE ACETATE 1% OPHTH DROPS 1ML RIGHTEYE SCH ×2 (09:23→16:48)
[2018-03-04] MEDS: LIDOCAINE 5% PATCH TOP SCH ×2 (09:25)
[2018-03-04] MEDS: CARVEDILOL 12.5MG TABLET PO SCH ×2 (09:26→20:03)
[2018-03-04] MEDS: ALLOPURINOL 100 MG TABLET PO SCH ×2 (09:26→16:49)
[2018-03-04] MEDS: FUROSEMIDE 40MG TABLET PO SCH (09:26)
[2018-03-04] MEDS: COLCHICINE 0.6MG TABLET PO SCH (09:26)
[2018-03-04] MEDS: FINASTERIDE 5MG TABLET PO SCH (09:26)
[2018-03-04] MEDS: ISOSORB DINIT/HYDRALAZINE HCL 20/37.5MG TABLET PO SCH ×2 (09:26→20:03)
[2018-03-04] MEDS: DOCUSATE SODIUM 100MG CAPSULE PO SCH ×2 (09:26→16:49)
[2018-03-04 15:47] LABS: CREATINE KINASE 42 IU/L (39-308)
[2018-03-04] MEDS: DEXTROSE 5% WATER 1,000 ML IV SCH (16:04)
[2018-03-04 20:00] VITALS: BP 138/65
[2018-03-04] MEDS: ATORVASTATIN CALCIUM 20MG TABLET PO SCH (20:03)
[2018-03-04] MEDS: FAMOTIDINE 20MG TABLET PO SCH (20:04)
[2018-03-05 07:49] LABS: BASOPHILS % 0.4 % (0.0-2.0); HEMATOCRIT. 24.7 % (42.0-52.0); HEMOGLOBIN. 8.2 g/dL (14.0-18.0); LYMPHOCYTES % 9.3 % (20.0-50.0); MEAN CORPUSCULAR HEMOGLOBIN 27.8 pg (28.0-32.0); MEAN CORPUSCULAR VOLUME 83.9 fL (80.0-94.0); MEAN PLATELET VOLUME 7.1 fl (7.4-10.4); MONOCYTES % 8.1 % (2.0-8.0); NEUTROPHILS % 82.2 % (40.0-76.0); PLATELET 88 x1000/uL (130-400); RED BLOOD CELL COUNT 2.94 mill/uL (4.7-6.1)
[2018-03-05 08:00] VITALS: BP 137/78
[2018-03-05] MEDS: DOCUSATE SODIUM 100MG CAPSULE PO SCH ×2 (09:00→17:00)
[2018-03-05] MEDS: POLYETHYLENE GLYCOL 3350 (17GM) 1 DOSE PACK PO SCH (09:00)
[2018-03-05] MEDS ORDERED: ALLOPURINOL 100 MG TABLET PO SCH (09:00)
[2018-03-05] MEDS: BUDESONIDE 0.5MG/2ML NEB HHN SCH ×2 (09:28→13:36)
[2018-03-05] MEDS: PREDNISOLONE ACETATE 1% OPHTH DROPS 1ML RIGHTEYE SCH ×2 (09:47→17:42)
[2018-03-05] MEDS: PREDNISONE 10MG TABLET PO SCH ×2 (09:47→17:41)
[2018-03-05] MEDS: CARVEDILOL 12.5MG TABLET PO SCH ×2 (09:48→21:36)
[2018-03-05] MEDS: COLCHICINE 0.6MG TABLET PO SCH (09:48)
[2018-03-05] MEDS: FINASTERIDE 5MG TABLET PO SCH (09:48)
[2018-03-05] MEDS: ISOSORB DINIT/HYDRALAZINE HCL 20/37.5MG TABLET PO SCH ×2 (09:48→21:36)
[2018-03-05] MEDS: LIDOCAINE 5% PATCH TOP SCH ×2 (09:49)
[2018-03-05] MEDS: IPRATROPIUM/ALBUTEROL 0.5-3(2.5)MG/3ML NEB HHN PRN ×3 (10:30→13:36)
[2018-03-05] MEDS: DEXTROSE 5% WATER 1,000 ML IV SCH (10:51)
[2018-03-05 17:09] LABS: ANTI-DNA DOUBLE STRANDED QUANT 3 IU/mL (0-9); RNP ANTIBODY < 0.2 AI (0.0-0.9); SMITH ANTIBODY < 0.2 AI (0.0-0.9)
[2018-03-05 20:00] VITALS: BP 139/72
[2018-03-05] MEDS: ATORVASTATIN CALCIUM 20MG TABLET PO SCH (21:36)
[2018-03-05] MEDS: FAMOTIDINE 20MG TABLET PO SCH (21:36)
[2018-03-06] MEDS: DEXTROSE 5% WATER 1,000 ML IV SCH (05:26)
[2018-03-06 08:00] VITALS: BP 137/74
[2018-03-06 08:22] LABS: BASOPHILS % 0.6 % (0.0-2.0); HEMATOCRIT. 23.8 % (42.0-52.0); HEMOGLOBIN. 7.8 g/dL (14.0-18.0); LYMPHOCYTES % 8.9 % (20.0-50.0); MEAN CORPUSCULAR HEMOGLOBIN 27.4 pg (28.0-32.0); MEAN CORPUSCULAR VOLUME 83.8 fL (80.0-94.0); MEAN PLATELET VOLUME 6.9 fl (7.4-10.4); MONOCYTES % 6.8 % (2.0-8.0); NEUTROPHILS % 83.7 % (40.0-76.0); PLATELET 81 x1000/uL (130-400); RED BLOOD CELL COUNT 2.83 mill/uL (4.7-6.1); RED CELL DISTRIBUTION WIDTH 22.9 % (11.6-14.6)
[2018-03-06 08:33] LABS: CLARITY URINE CLEAR (CLEAR); COLOR URINE YELLOW (YELLOW); KETONES URINE NEGATIVE (NEGATIVE); LEUKOCYTE ESTERASE URINE NEGATIVE (NEGATIVE); NITRITE URINE NEGATIVE (NEGATIVE); OCCULT BLOOD URINE NEGATIVE (NEGATIVE); PROTEIN URINE NEGATIVE (NEGATIVE); SPECIFIC GRAVITY URINE 1.013 (1.005-1.030); UROBILINOGEN URINE 0.2 E.U./dL (0.2-1.0)
[2018-03-06 08:44] LABS: PHOSPHORUS 3.4 mg/dL (2.5-4.9)
[2018-03-06] MEDS: DOCUSATE SODIUM 100MG CAPSULE PO SCH ×2 (09:00→16:30)
[2018-03-06] MEDS ORDERED: ALLOPURINOL 100 MG TABLET PO SCH (09:00)
[2018-03-06] MEDS: POLYETHYLENE GLYCOL 3350 (17GM) 1 DOSE PACK PO SCH (09:00)
[2018-03-06] MEDS ORDERED: ALLOPURINOL 300 MG TABLET PO SCH (09:00)
[2018-03-06] MEDS: PREDNISOLONE ACETATE 1% OPHTH DROPS 1ML RIGHTEYE SCH ×2 (09:51→16:34)
[2018-03-06] MEDS: LIDOCAINE 5% PATCH TOP SCH (09:52)
[2018-03-06] MEDS: CARVEDILOL 12.5MG TABLET PO SCH ×2 (09:56→21:00)
[2018-03-06] MEDS: COLCHICINE 0.6MG TABLET PO SCH (09:56)
[2018-03-06] MEDS: ISOSORB DINIT/HYDRALAZINE HCL 20/37.5MG TABLET PO SCH ×2 (09:56→22:20)
[2018-03-06] MEDS: FINASTERIDE 5MG TABLET PO SCH (09:56)
[2018-03-06] MEDS: PREDNISONE 10MG TABLET PO SCH ×2 (09:56→16:34)
[2018-03-06 11:59] LABS: TOTAL IRON BINDING CAPACITY 224 ug/dL (250-450)
[2018-03-06] MEDS: FERROUS SULFATE 325MG TABLET PO SCH ×2 (12:56→16:30)
[2018-03-06 18:01] LABS: HEMATOCRIT 25.2 % (42.0-52.0); HEMOGLOBIN 8.2 g/dL (14.0-18.0)
[2018-03-06 20:00] VITALS: BP 116/71
[2018-03-06] MEDS: ATORVASTATIN CALCIUM 20MG TABLET PO SCH (22:20)
[2018-03-06] MEDS: FAMOTIDINE 20MG TABLET PO SCH (22:20)
[2018-03-07] MEDS: DEXTROSE 5% WATER 1,000 ML IV SCH (02:37)
[2018-03-07 07:22] LABS: HEMOGLOBIN. 8.3 g/dL (14.0-18.0); MEAN CORPUSCULAR VOLUME 84.8 fL (80.0-94.0); MEAN PLATELET VOLUME 6.8 fl (7.4-10.4); PLATELET 87 x1000/uL (130-400); RED BLOOD CELL COUNT 2.95 mill/uL (4.7-6.1); RED CELL DISTRIBUTION WIDTH 22.8 % (11.6-14.6)
[2018-03-07 08:00] VITALS: BP 148/83
[2018-03-07] MEDS: POLYETHYLENE GLYCOL 3350 (17GM) 1 DOSE PACK PO SCH (09:00)
[2018-03-07] MEDS ORDERED: ALLOPURINOL 300 MG TABLET PO SCH (09:00)
[2018-03-07] MEDS: FERROUS SULFATE 325MG TABLET PO SCH ×3 (09:00→16:44)
[2018-03-07] MEDS: DOCUSATE SODIUM 100MG CAPSULE PO SCH ×2 (09:00→16:43)
[2018-03-07] MEDS: LIDOCAINE 5% PATCH TOP SCH (09:00)
[2018-03-07] MEDS: FINASTERIDE 5MG TABLET PO SCH (12:06)
[2018-03-07] MEDS: CARVEDILOL 12.5MG TABLET PO SCH ×2 (12:06→21:00)
[2018-03-07] MEDS: ALLOPURINOL 100 MG TABLET PO SCH (12:07)
[2018-03-07] MEDS: PREDNISONE 10MG TABLET PO SCH (12:07)
[2018-03-07] MEDS: COLCHICINE 0.6MG TABLET PO SCH (12:08)
[2018-03-07] MEDS: ISOSORB DINIT/HYDRALAZINE HCL 20/37.5MG TABLET PO SCH ×2 (12:08→21:05)
[2018-03-07] MEDS: PREDNISOLONE ACETATE 1% OPHTH DROPS 1ML RIGHTEYE SCH ×2 (12:10→16:45)
[2018-03-07 17:06] LABS: ANA IFA Negative (.)
[2018-03-07 18:03] LABS: PLATELET ESTIMATE DECREASED
[2018-03-07 19:10] LABS: CYC CITRULLINATED PEP IgG/IgA 6 units (0-19)
[2018-03-07 20:00] VITALS: BP 134/69
[2018-03-07] MEDS: ATORVASTATIN CALCIUM 20MG TABLET PO SCH (21:05)
[2018-03-07] MEDS: FAMOTIDINE 20MG TABLET PO SCH (21:05)
[2018-03-08 08:00] VITALS: BP 141/77
[2018-03-08] MEDS: PREDNISOLONE ACETATE 1% OPHTH DROPS 1ML RIGHTEYE SCH ×2 (09:00→17:05)
[2018-03-08] MEDS: FINASTERIDE 5MG TABLET PO SCH (09:33)
[2018-03-08] MEDS: FERROUS SULFATE 325MG TABLET PO SCH ×3 (09:33→17:05)
[2018-03-08] MEDS: ISOSORB DINIT/HYDRALAZINE HCL 20/37.5MG TABLET PO SCH ×2 (09:34→22:24)
[2018-03-08] MEDS: ALLOPURINOL 100 MG TABLET PO SCH (09:34)
[2018-03-08] MEDS: DOCUSATE SODIUM 100MG CAPSULE PO SCH ×2 (09:35→17:05)
[2018-03-08] MEDS: PREDNISONE 10MG TABLET PO SCH (09:35)
[2018-03-08] MEDS: CARVEDILOL 12.5MG TABLET PO SCH ×2 (09:35→21:00)
[2018-03-08] MEDS: COLCHICINE 0.6MG TABLET PO SCH (09:35)
[2018-03-08] MEDS: LIDOCAINE 5% PATCH TOP SCH (09:45)
[2018-03-08] MEDS: POLYETHYLENE GLYCOL 3350 (17GM) 1 DOSE PACK PO SCH (09:52)
[2018-03-08 20:00] VITALS: BP 138/73
[2018-03-08] MEDS: ATORVASTATIN CALCIUM 20MG TABLET PO SCH (22:23)
[2018-03-08] MEDS: FAMOTIDINE 20MG TABLET PO SCH (22:24)
[2018-03-09 08:00] VITALS: BP 147/78
[2018-03-09] MEDS: FINASTERIDE 5MG TABLET PO SCH (09:51)
[2018-03-09] MEDS: ALLOPURINOL 100 MG TABLET PO SCH (09:52)
[2018-03-09] MEDS: COLCHICINE 0.6MG TABLET PO SCH (09:52)
[2018-03-09] MEDS: FERROUS SULFATE 325MG TABLET PO SCH ×2 (09:53→13:10)
[2018-03-09] MEDS: DOCUSATE SODIUM 100MG CAPSULE PO SCH (09:53)
[2018-03-09] MEDS: ISOSORB DINIT/HYDRALAZINE HCL 20/37.5MG TABLET PO SCH (09:54)
[2018-03-09] MEDS: CARVEDILOL 12.5MG TABLET PO SCH (09:54)
[2018-03-09] MEDS: POLYETHYLENE GLYCOL 3350 (17GM) 1 DOSE PACK PO SCH (09:55)
[2018-03-09] MEDS: LIDOCAINE 5% PATCH TOP SCH (09:55)
[2018-03-09] MEDS: PREDNISOLONE ACETATE 1% OPHTH DROPS 1ML RIGHTEYE SCH (09:56)
[2018-03-09 14:17] VITALS: BP 131/62
[2018-03-10 04:12] LABS: HLA CLASS 1 ANTIBODY Negative (Negative); IIb/IIIa ANTIBODY Negative (Negative); Ia/IIa ANTIBODY Negative (Negative); Ib/IX ANTIBODY Negative (Negative)
[2018-03-16] MEDS ORDERED: HYDR200T35 PO (20:32)
[2018-03-16] MEDS ORDERED: TIMO5DRO32 EACHEYE (20:32)
[2018-03-16] MEDS ORDERED: FERR324T4 PO (20:32)
[2018-03-16] MEDS ORDERED: FINA5TAB11 PO (20:32)
[2018-03-16] MEDS ORDERED: FESO8TAB PO (20:32)
[2018-03-16] MEDS ORDERED: PRED10TA PO (20:32)
[2018-03-16] MEDS ORDERED: FURO-151 PO (20:32)
[2018-03-16] MEDS ORDERED: COLC0.6C PO (20:32)
[2018-03-16] MEDS ORDERED: CARV12.545 PO (20:32)
[2018-03-16] MEDS ORDERED: ATOR20TA65 PO (20:32)
[2018-03-16] MEDS ORDERED: AMLO10TA80 PO (20:32)
== END 2018-03-09 15:19 | disposition home health service (06) | DRG 947 ==
PROVIDERS: ADMIT Physical Medicine & Rehabilitation Spinal Cord Injury Medicine; ATTEND Internal Medicine
DX: R53.81 Other malaise (principal); I50.23 Acute on chronic systolic (congestive) heart failure; D61.818 Other pancytopenia; E46 Unspecified protein-calorie malnutrition; I13.0 Hypertensive heart and chronic kidney disease with heart failure and stage 1 through stage 4 chronic kidney disease, or unspecified chronic kidney disease; I42.9 Cardiomyopathy, unspecified; N17.9 Acute kidney failure, unspecified; M10.9 Gout, unspecified; E78.00 Pure hypercholesterolemia, unspecified; J44.9 Chronic obstructive pulmonary disease, unspecified; M19.90 Unspecified osteoarthritis, unspecified site; N18.9 Chronic kidney disease, unspecified; Z82.49 Family history of ischemic heart disease and other diseases of the circulatory system; Z95.810 Presence of automatic (implantable) cardiac defibrillator; K57.90 Diverticulosis of intestine, part unspecified, without perforation or abscess without bleeding; M25.461 Effusion, right knee; R26.9 Unspecified abnormalities of gait and mobility
CPT/HCPCS: 36415; 73200; 76770; 80048; 80053; 81003; 82270; 82306; 82550; 82607; 82728; 82746; 83540; 83550; 83735; 84100; 84134; 84153; 84443; 84550; 84630; 85014; 85018; 85025; 85651; 86022; 86200; 86225; 86235; 86256; 86431; 86880; 93970; 94640; 97110; 97112; 97116; 97162; 97167; 97530; 97535; C1893; J1650; J2920; J7060; J7070; J7512; J7620; J7626; Q0162; G0103